=== PATIENT | male | born 1960 | race Caucasian/White ===

== ENCOUNTER 2018-11-21 06:14 | Day surgery (SDC) | payer MEDICARE ==
[~2018-11-21] VITALS: Ht 167.6 cm; Wt 64.1 kg
[~2018-11-21 06:14] MED LIST: LEVO50TA5 PO; LIDOCAINE 1% MDV 20ML VIAL SQ PRN
[2018-11-21] MEDS ORDERED: LR 1,000 ML IV ONE (06:15)
[2018-11-21] MEDS ORDERED: CONRAY-60 60% 50ML VIAL (Q9961) As Ordered ONE (07:12)
[2018-11-21] MEDS ORDERED: dexameTHASONE 4 MG/ML 1ML VIAL (J1100) As Ordered ONE (07:22)
[2018-11-21] MEDS ORDERED: PROPOFOL 200 MG/20 ML VIAL As Ordered ONE (07:22)
[2018-11-21] MEDS ORDERED: ROCURONIUM BROMIDE 50 MG/5 ML VIAL As Ordered ONE (07:22)
[2018-11-21] MEDS ORDERED: LIDOCAINE 2% INJ 100 MG/5 ML SDV (FOR ANES.) As Ordered ONE (07:22)
[2018-11-21] MEDS ORDERED: fentaNYL 250 MCG/5 ML INJECTION (J3010) As Ordered ONE (07:23)
[2018-11-21] MEDS ORDERED: MIDAZOLAM INJ 2 MG/2 ML VIAL (J2250) As Ordered ONE (07:23)
[2018-11-21] MEDS ORDERED: ePHEDrine SULFATE 25 MG/5 ML(5MG/ML) SYRINGE As Ordered ONE (08:06)
[2018-11-21] MEDS ORDERED: ONDANSETRON 4MG/2ML VIAL (J2405) As Ordered ONE (08:58)
[2018-11-21] MEDS ORDERED: ONDANSETRON 4MG/2ML VIAL (J2405) IV PRN (09:30)
[2018-11-21] MEDS ORDERED: LR 1,000 ML IV SCH (09:30)
[2018-11-21] MEDS ORDERED: PERCOCET 5MG/325MG TAB PO PRN (09:30)
[2018-11-21] MEDS ORDERED: fentaNYL 100 MCG/2 ML INJECTION (J3010) IV PRN (09:30)
--- NOTE | 2018-11-21 09:46 | REP ---
Retrograde pyelogram: Two intraoperative fluoroscopic views are performed during placement of a right ureteral stent. The final image demonstrates the proximal and distal stent pigtails to be in satisfactory positions. Fluoroscopic exposure time is all 90 minutes. Fluoroscopic images are performed with last image hold technology and require no additional radiation. Electronically Signed by Shawn Lopez MD 11/21/2018 09:37 A
[2018-11-21 10:45] VITALS: BP 152/72
--- NOTE | 2018-11-25 01:17 | RO ---
DATE OF PROCEDURE: 11/21/2018 PREPROCEDURE DIAGNOSIS: Right ureteral stone. POSTPROCEDURE DIAGNOSIS: Right ureteral stone. PROCEDURE: Cystoscopy, right ureteroscopy with basket extraction of stones, right retrograde pyelogram with intraoperative interpretation of images, right ureteral stent placement. SURGEON: Dr. Daniel Lazaro ENVIRONMENTAL SCIENCE INSTRUCTOR: None. ANESTHESIA: General. OPERATIVE INDICATIONS: This is a 58-year-old male who was found to have an obstructing proximal right ureteral stone approximately 2-3 months ago. He was given a trial of passage, and he ultimately was not able to pass the stone. He was brought to the operating room today for treatment. DESCRIPTION OF PROCEDURE: The patient was brought to the operating room, and general anesthesia was induced. Prophylactic antibiotics were infused. He was then placed in the dorsal lithotomy position, prepped and draped in the usual sterile fashion. A rigid cystoscope was inserted into the urethral meatus and advanced into the bladder. Once inside the bladder, I attempted to advance the guidewire up the right collecting system. Of note, the stone at this point was at his right ureterovesical junction. I, therefore, removed the cystoscope and advanced a short semirigid ureteroscope in and utilized that to advance the wire up in the right collecting system. Once that was done, I then used a basket to try to basket the stone. Of note, as soon as I closed the basket around the stone, it crushed into very tiny fragments. I was able to retrieve a few of these tiny fragments to be sent for analysis. I then examined the more proximal ureter with the ureteroscope, and no stones were seen. I then withdrew the ureteroscope and advanced the ureteral access sheath up into the right collecting system. I then went up the access sheath with a flexible ureteroscope and examined the kidney thoroughly. The kidney was hydronephrotic, but I did not see any large stone fragments. At this point, a retrograde pyelogram was performed and it was notable for moderate to severe right hydronephrosis with no extravasation. I then withdrew the ureteroscope along with the access sheath, and once again no stones were seen in the remainder of the ureter. I then utilized the wire to advance a #6-[place] x 22-32 cm JJ ureteral stent up the right collecting system. The wire was removed, and there were adequate curls of the stent in the right renal pelvis and in the bladder. The bladder was emptied of all fluids, and this marked the conclusion of procedure. The patient was taken out of dorsal lithotomy position, awakened from anesthesia, and transferred to recovery room in stable condition. ESTIMATED BLOOD LOSS: 5 mL. COMPLICATIONS: None. SPECIMENS: Kidney stone fragments. PLAN: The patient will followup in clinic in approximately 1-2 weeks for stent removal. MER
== END 2018-11-21 10:50 | disposition home or self-care (01) ==
LOC: M SDC 06:14
PROVIDERS: ATTEND Urology
DX: N20.1 Calculus of ureter (principal); N20.0 Calculus of kidney; E03.9 Hypothyroidism, unspecified; L40.8 Other psoriasis; Z85.118 Personal history of other malignant neoplasm of bronchus and lung; Z79.899 Other long term (current) drug therapy; N40.0 Benign prostatic hyperplasia without lower urinary tract symptoms; Z92.21 Personal history of antineoplastic chemotherapy; Z92.3 Personal history of irradiation; Z87.891 Personal history of nicotine dependence
CPT/HCPCS: 52332; 52352; 74420; 82360; 88300; C1769; C1894; C2617; J0690; J1100; J2250; J2405; J3010; Q9961